=== PATIENT | female | born 1990 | race Two or more races ===

== ENCOUNTER → 2021-03-20 12:55 | Outpatient (BNVA) | payer OTHER, SELFPAY | PROVIDERS: PCP Internal Medicine; Visit Provider Physician Assistant | DX: E66.9 Obesity, unspecified (principal); Z68.36 Body mass index [BMI] 36.0-36.9, adult | CPT/HCPCS: 99202 ==

== ENCOUNTER → 2021-04-16 13:44 | Outpatient (BNVA) | payer OTHER, SELFPAY | PROVIDERS: PCP Internal Medicine; Visit Provider Physician Assistant | DX: E66.01 Morbid (severe) obesity due to excess calories (principal); Z68.41 Body mass index [BMI] 40.0-44.9, adult | CPT/HCPCS: 99212 ==

== ENCOUNTER 2021-04-19 10:12 | Outpatient (REF) | payer OTHER, SELFPAY ==
--- NOTE | ~2021-04-19 | XR_ITS ---
EXAMINATION: XR CHEST CLINICAL INFORMATION: Obesity. COMPARISON: None TECHNIQUE: 2 views of the chest were obtained. FINDINGS: The lungs are clear. The cardiomediastinal silhouette is normal in size. There is no pleural effusion or pneumothorax. No acute osseous abnormality. XR/XR chest 2V IMPRESSION: No acute cardiopulmonary findings.
--- NOTE | 2021-04-19 10:43 | ECG_ITS ---
Test Reason : MORBID OBESITY Blood Pressure : / mmHG Vent. Rate : 074 BPM Atrial Rate : 074 BPM P-R Int : 136 ms QRS Dur : 070 ms QT Int : 372 ms P-R-T Axes : 042 069 044 degrees QTc Int : 412 ms Normal sinus rhythm Normal ECG No previous ECGs available Referred By: Jenae Sun Electronically Signed By:NIRMALA BROWN MD
[2021-04-19 11:44] LABS: Basophils Percent Auto 0.3 % (0-2); Eosinophils Absolute Auto 0.3 X10*3/uL (0.0-0.4); Eosinophils Percent Auto 3.8 % (0-4); Hematocrit 41.4 % (37-47); Hemoglobin 13.9 g/dl (12.0-16.0); Imm Gran Abs Auto 0.02 X10*3/uL (0.00-0.03); Imm Gran Pct Auto 0.2 % (0.0-0.4); Lymphocytes Absolute Auto 2.2 X10*3/uL (1.2-4.9); Lymphocytes Percent Auto 24.4 % (20-40); MANUAL DIFF FLAG SCAN; Mean Corpuscular HGB Conc 33.6 g/dl (31.0-35.0); Mean Corpuscular Hemoglobin 28.1 pg (27.0-33.0); Mean Corpuscular Volume 83.6 fL (80-98); Mean Platelet Volume 9.9 fL (9.4-12.3); Monocytes Absolute Auto 0.4 X10*3/uL (0.1-1.2); Monocytes Percent Auto 4.9 % (2-11); Neutrophils Percent Auto 66.4 % (45-73); PLT CLUMP 1; Red Blood Count 4.95 X10*6/uL (4.20-5.50); Red Cell Distribution Width 14.6 % (11.0-16.0); SCAN SMEAR FLAG 1
[2021-04-19 12:01] LABS: Estimated Average Glucose 128 mg/dL; Hemoglobin A1c % 6.1 %
[2021-04-19 12:06] LABS: Alanine Aminotransferase 25 U/L (0-31); Albumin Level 4.3 g/dL (3.5-5.0); Alkaline Phosphatase 78 U/L (39-117); Anion Gap 12 (12-20); Aspartate Amino Transferase 18 U/L (5-31); Bilirubin Total 0.4 mg/dL (0.0-1.0); Blood Urea Nitrogen 10 mg/dL (9-16); C Reactive Protein 2.37 mg/dL (< or = 0.50); Calcium 9.6 mg/dL (8.4-10.2); Carbon Dioxide 26 mmol/L (22-29); Chloride 105 mmol/L (96-108); Cholesterol 181 mg/dL; Estimated Glomerular Filt Rate > 60; Glucose Fasting 94 mg/dL (60-99); HDL Cholesterol 49 mg/dL; Iron 41 mcg/dL (30-160); LDL Cholesterol Calculated 118 mg/dl; Percent Iron Saturation 11 % (15-50); Potassium 4.5 mmol/L (3.3-5.1); Sodium 138 mmol/L (135-145); Total Iron Binding Capacity 374 mcg/dL (228-428); Total Protein 7.5 g/dL (6.5-8.0); Triglycerides 74 mg/dL; Unsaturated Iron Binding 333 ug/dL
[2021-04-19 12:41] LABS: Ferritin 74 ng/mL (10-122); TSH reflex Free T4 0.83 uIU/mL (0.32-4.0); Vitamin D 25-OH Total 20.1 ng/mL (>30)
[2021-04-19 12:47] LABS: Folate 15.4 ng/mL (> or = 4.0); Vitamin B12 502 pg/mL (200-900)
[2021-04-19 12:52] LABS: Platelet Count 350 X10*3/uL (160-400); SLIDE REVIEW VERIFIED
[2021-04-20 15:26] LABS: Insulin Level Total 32.7 uIU/mL
[2021-04-21 09:36] LABS: Calcium (PTHI) 9.1 mg/dL (8.6-10.2); PTHI 44 pg/mL (14-64)
[2021-04-22 23:56] LABS: Zinc 86 mcg/dL (60-130)
[2021-04-23 11:06] LABS: Vitamin B1 12 nmol/L (8-30)
[2021-04-25 13:56] LABS: Vitamin A 55 mcg/dL (38-98)
== END 2021-04-19 10:13 | disposition home or self-care (01) ==
LOC: HO.XRAY 10:12
PROVIDERS: PCP Internal Medicine; Visit Provider Physician Assistant
DX: E66.9 Obesity, unspecified (principal); Z68.38 Body mass index [BMI] 38.0-38.9, adult; R06.02 Shortness of breath
CPT/HCPCS: 36415; 71046; 80053; 80061; 82306; 82607; 82728; 82746; 83036; 83525; 83540; 83970; 84425; 84443; 84590; 84630; 85025; 86140; 93005; 99212

== ENCOUNTER 2021-05-01 | Outpatient (REF) | payer OTHER, SELFPAY | END 2021-05-01 00:01 | disposition home or self-care (01) | LOC: HO.LAB | PROVIDERS: Visit Provider Physician Assistant | DX: Z11.1 Encounter for screening for respiratory tuberculosis (principal) | CPT/HCPCS: 83013 ==

== ENCOUNTER 2021-05-01 10:02 | Outpatient (REF) | payer OTHER, SELFPAY | END 2021-05-01 10:03 | disposition home or self-care (01) | LOC: CF 10:02 | PROVIDERS: Visit Provider Physician Assistant | DX: Z11.1 Encounter for screening for respiratory tuberculosis (principal) | CPT/HCPCS: 99211 ==

== ENCOUNTER 2021-05-08 09:12 | Outpatient (REF) | payer OTHER, SELFPAY ==
--- NOTE | ~2021-05-08 | US_ITS ---
EXAMINATION: US COMPLETE ABDOMEN WITH LIVER ELASTOGRAPHY CLINICAL INFORMATION: Obesity. COMPARISON: None TECHNIQUE: Real-time imaging of the abdominal viscera. Noninvasive ultrasound liver fibrosis assessment is performed using Shivani ElastPQ point quantification shear wave elastography (pSWE) with a C5-2 MHz transducer. Multiple elastography samples are obtained. FINDINGS: PANCREAS: The body of the pancreas is normal appearing. The head and tail are not well visualized due to bowel gas. ABDOMINAL AORTA: The proximal, middle, and distal aortic segments are normal in caliber. INFERIOR VENA CAVA: Visualized portions are normal. LIVER: Liver echotexture is increased. The liver is normal in size and contour. There is a hypoechoic area adjacent to the gallbladder, characteristic location of focal fatty sparing. No other focal lesion or intrahepatic biliary duct dilatation. The right lobe measures 16 cm in length. The left lobe measures 13 cm in length. Portal flow is normal. Hepatopedal. Shear wave liver elastography median stiffness is 1.7 m/s (reference: normal median stiffness is 1.3 m/s or less). IQR/median stiffness to assess sampling precision is 0.12 (reference: good quality data set is IQR/median stiffness of 0.15 or less). GALLBLADDER: Normal. The gallbladder is physiologically distended without evidence of stones, sludge, polyps, wall thickening or pericholecystic fluid. COMMON BILE DUCT: Normal in caliber measuring 0.3 cm in diameter. RIGHT KIDNEY: Normal. No hydronephrosis. No renal calculi or focal parenchymal lesions. The kidney measures 12.8 cm in maximum dimension. LEFT KIDNEY: Normal. No hydronephrosis. No renal calculi or focal parenchymal lesions. The kidney measures 11 cm in maximum dimension. SPLEEN: Normal. The spleen measures 9.8 cm in maximum dimension. FREE FLUID: None. US/US abdomen comp w elastography IMPRESSION: 1. Echogenic liver probably representing fatty infiltration. Limited visualization of the pancreas. 2. Liver Elastography: Adequate sampling. In the absence of other known clinical signs, rules out compensated advanced chronic liver disease. REFERENCE: Society of Radiologists in Ultrasound Liver Stiffness Thresholds (2020): LIVER STIFFNESS THRESHOLDS: *Liver Stiffness equal or less than 1.3 m/s: High probability of being normal. *Liver Stiffness less than 1.7 m/s: In the absence of other known clinical signs, rules out compensated advanced chronic liver disease. *Liver Stiffness 1.7-2.1 m/s: Suggestive of compensated advanced chronic liver disease but need further test for confirmation. *Liver Stiffness over 2.1 m/s: Rules in compensated advanced chronic liver disease. *Liver Stiffness over 2.4 m/s: Suggestive of clinically significant portal hypertension. QUALITY OF DATA SET: *IQR/Median value equal or less than 0.15 implies a quality data set. *IQR/Median value over 0.15 implies a poor quality data set. SIGNIFICANT CHANGE FROM PRIOR EXAM: Significant change if liver stiffness measurement is 10% or greater from prior exam. OTHER CONSIDERATIONS: The stage of liver fibrosis may be overestimated in the setting of acute hepatitis, liver inflammation, elevated liver function tests, hepatic vascular congestion, obstructive cholestasis, non-fasting state, and infiltrative diseases such as amyloidosis and lymphoma. In some patients with NAFLD, the liver stiffness thresholds for compensated advanced chronic liver disease may be lower. In causes other than viral hepatitis and NAFLD, liver stiffness thresholds are not well established.
--- NOTE | ~2021-05-08 | FL_ITS ---
EXAMINATION: XR GI SERIES CLINICAL INFORMATION: Obesity COMPARISON: None TECHNIQUE: Upper GI was performed using thin and thick barium and effervescent granules. FINDINGS: Esophageal motility is normal. No esophageal hernia or reflux is seen. The stomach and duodenum are normal-appearing. No fold thickening, mass, ulcer or stricture is seen. FLUOROSCOPY TIME: 1.5 minutes DOSE AREA PRODUCT: 18 del rio per centimeter squared. Total dose 73 mgy. 28 saved fluoroscopic images. FL/FL upper GI series IMPRESSION: Unremarkable examination.
== END 2021-05-08 09:13 | disposition home or self-care (01) ==
LOC: HO.US 09:12
PROVIDERS: Visit Provider Surgery
DX: Z01.818 Encounter for other preprocedural examination (principal); E66.01 Morbid (severe) obesity due to excess calories; Z68.41 Body mass index [BMI] 40.0-44.9, adult; R06.02 Shortness of breath; K21.9 Gastro-esophageal reflux disease without esophagitis
CPT/HCPCS: 74240; 76705; 76981; 97802

== ENCOUNTER → 2021-05-22 09:01 | Outpatient (BNVA) | payer OTHER, SELFPAY | PROVIDERS: PCP Internal Medicine; Visit Provider Surgery | DX: E66.9 Obesity, unspecified (principal); I49.9 Cardiac arrhythmia, unspecified; Z68.36 Body mass index [BMI] 36.0-36.9, adult | CPT/HCPCS: 99212 ==

== ENCOUNTER → 2021-05-29 08:16 | Outpatient (BNVA) | payer OTHER, SELFPAY | PROVIDERS: PCP Internal Medicine; Visit Provider Dietitian, Registered | DX: E66.9 Obesity, unspecified (principal); Z68.35 Body mass index [BMI] 35.0-35.9, adult | CPT/HCPCS: 97803 ==

== ENCOUNTER → 2021-06-19 11:28 | Outpatient (BNVA) | payer OTHER, SELFPAY | PROVIDERS: PCP Internal Medicine; Visit Provider Surgery | DX: E66.01 Morbid (severe) obesity due to excess calories (principal); K58.9 Irritable bowel syndrome, unspecified; E66.9 Obesity, unspecified; E55.9 Vitamin D deficiency, unspecified; Z68.36 Body mass index [BMI] 36.0-36.9, adult; Z91.030 Bee allergy status; Z79.899 Other long term (current) drug therapy | CPT/HCPCS: 99212 ==

== ENCOUNTER 2021-07-03 09:00 | Outpatient (REF) | payer OTHER, SELFPAY ==
[2021-07-04 13:15] LABS: H Pylori Breath Test DETECTED (NOT DETECTED)
== END 2021-07-03 09:01 | disposition home or self-care (01) ==
LOC: HO.LNP 09:00
PROVIDERS: Surgery; PCP Internal Medicine; Visit Provider Physician Assistant
DX: Z01.818 Encounter for other preprocedural examination (principal); A04.8 Other specified bacterial intestinal infections
CPT/HCPCS: 83013; 99211

== ENCOUNTER → 2021-07-04 14:30 | Outpatient (BNVA) | payer OTHER, SELFPAY | PROVIDERS: PCP Internal Medicine; Visit Provider Internal Medicine Cardiovascular Disease | DX: R00.2 Palpitations (principal) | CPT/HCPCS: 99202 ==

== ENCOUNTER → 2021-07-26 11:06 | Outpatient (REF) | payer OTHER, SELFPAY ==
--- NOTE | 2021-07-26 11:09 | HM_ITS ---
Baseline rhythm is normal sinus rhythm with average heart rate in 90s. No significant pauses or bradycardia noted. AV conduction is satisfactory. Total burden of PVC for 6 days at 4194 PVCs, mostly isolated with 2 different morphology. No significant ventricular tachyarrhythmia noted. Total burden of PVCs in the occasional range. Patient reported 6 events, 1 of the events of chest pain correlated with ventricular bigeminy. Other 5 events correlated with sinus rhythm. MTDD
== END ==
LOC: HO.CARD 11:06
PROVIDERS: PCP Internal Medicine; Visit Provider Internal Medicine
DX: R00.2 Palpitations (principal)
CPT/HCPCS: 93242

== ENCOUNTER → 2021-08-17 13:03 | Outpatient (REF) | payer OTHER, SELFPAY ==
--- NOTE | 2021-08-17 13:06 | CA_ITS ---
Transthoracic Echocardiogram Patient (Last, First, Middle): Virginia Christopher M Gender: Female Date of : 1990 Age: 30 Procedure Date: 08/17/2021 Procedure Type: Transthoracic Echocardiogram Location: OP Height: 162.56 cm Weight: 97.52 kg BSA: 2.02 m2 Heart Rate: bpm BP: 110 / 60 mmHg Supervisor Intelligence Analyst: YR/CP Referring MD: Alfred Fernandez MD Symptoms: I42.9 - Cardiomyopathy, unspecified Study Quality: Fair Conclusions: - Normal left ventricular size, thickness, systolic function, and wall motion. - Diastolic function is normal for age. - Normal right ventricular cavity size and systolic function. - No significant valvular or pericardial pathology. Findings Left Ventricle Normal left ventricular size, thickness, systolic function, and wall motion. The visually estimated ejection fraction is between 55-60%. Diastolic function is normal for age. Right Ventricle Normal right ventricular cavity size and systolic function. Atria Both atria are normal in size. Aortic Valve Normal aortic valve structure and function. There is no aortic valve stenosis. There is no aortic valve regurgitation. Mitral Valve Normal mitral valve structure and function. There is no mitral valve regurgitation. There is no mitral valve stenosis. Pulmonic Valve Normal pulmonic valve structure and function. There is no pulmonic valve regurgitation. Tricuspid Valve Normal tricuspid valve structure and function. There is trace tricuspid valve regurgitation. Tricuspid regurgitation envelope is inadequate for calculation of right ventricular systolic pressure. Normal right atrial pressure. Great Vessels All visible segments of the aorta are normal in size. The visualized portions of the pulmonary artery and branches are normal. Venous The inferior vena cava is normal in size and collapses greater than 50% with inspiration. Pericardium/Pleural Normal pericardial structure. There is no evidence of pericardial effusion. Prior Study Comparison No prior study available for comparison. Measurements 2D Linear Measurements IVSd: 0.90 0.6-0.9/0.6-1.0 cm LVIDd: 4.77 3.9-5.3/4.2-5.9 cm LVIDd Index: 2.36 2.4-3.2/2.2-3.1 cm/m2 LVIDs: 3.26 2.0-3.6 cm LVPWd: 0.67 0.7-1.1 cm Ao Root: 3.20 2.1-3.5 cm LA Diam: 3.40 2.7-3.8/3.0-4.0 cm LAIDs Index: 1.68 1.5-2.3 cm/m2 LV Mass: 151.41 67-162/88-224 g LV Mass Index: 74.96 43-95/49-115 g/m2 LVOT Diam: 2.00 3.0+(-)1.3 cm 2D Systolic Function EF 4C: 57.00 >55% EF 2C: 64.90 >55% EF BiP: 61.40 >55% Mitral Valve MV Pk E: 0.88 MV PK A: 0.51 MV Decel Time: 212.00 E/A: 1.70 E'Lateral: 13.10 E'Medial: 10.00 E/E' Med: 8.80 E/E' Lat: 6.70 PHT: 62.00 MVA PHT: 3.55 Decel Roberts: 4.14 Aortic Valve AoV Pk Dwayne: 1.09 AoV Mn Dwayne: 0.82 AoV VTI: 0.25 AoV Pk Grad: 5.00 Aov Mn Grad: 3.00 EVITA Cont.VTI: 2.33 LVOT LVOT Pk Dwayne: 1.00 LVOT Mn Dwayne: 0.65 LVOT VTI: 0.19 LVOT Pk Grad: 4.00 LVOT Mn Grad: 2.00 LVOT Diam: 2.00 LVOT Area: 3.14 Diastolic Function MV Pk E: 0.88 MV Pk A: 0.51 E/A: 1.70 E'Medial: 10.00 E/E' Med: 8.80 E' Laterial: 13.10 E/E' Lat: 6.70 Right Ventricle TAPSE (mm): 2.20 TVS' Dwayne: 10.30 Tricuspid Valve RA Press: 3.00 Great Vessels Aorta Ao Root-2D: 3.20 2.0-3.7 cm Ao Asc: 3.00 2.1-3.4 cm Ao Arch: 2.70 Updated in Other Vendor System with Status of Final Alfred Fernandez MD electronically signed on 08/19/2021 1:58:01 PM with status of Final
== END ==
LOC: HO.CARD 13:03
PROVIDERS: PCP Internal Medicine; Visit Provider Internal Medicine Cardiovascular Disease
DX: R00.2 Palpitations (principal); I42.9 Cardiomyopathy, unspecified
CPT/HCPCS: 93306

== ENCOUNTER 2021-10-12 | Outpatient (REF) | payer OTHER, SELFPAY ==
[2021-10-16 12:12] LABS: H Pylori Breath Test Positive (Negative)
== END 2021-10-12 00:01 | disposition home or self-care (01) ==
LOC: HO.LNP
PROVIDERS: Visit Provider Physician Assistant
DX: E66.01 Morbid (severe) obesity due to excess calories (principal); Z68.41 Body mass index [BMI] 40.0-44.9, adult; R06.02 Shortness of breath
CPT/HCPCS: 83013

== ENCOUNTER → 2021-10-12 09:06 | Outpatient (BNVA) | payer OTHER, SELFPAY | PROVIDERS: PCP Internal Medicine; Visit Provider Surgery | DX: E66.9 Obesity, unspecified (principal); E11.9 Type 2 diabetes mellitus without complications; E16.1 Other hypoglycemia; E28.2 Polycystic ovarian syndrome; J45.909 Unspecified asthma, uncomplicated; G47.30 Sleep apnea, unspecified; Z68.38 Body mass index [BMI] 38.0-38.9, adult | CPT/HCPCS: 99211; 99212 ==

== ENCOUNTER → 2021-10-16 08:05 | Outpatient (BNVA) | payer OTHER, SELFPAY | PROVIDERS: PCP Internal Medicine; Visit Provider Dietitian, Registered | DX: E66.01 Morbid (severe) obesity due to excess calories (principal); E55.9 Vitamin D deficiency, unspecified; Z68.38 Body mass index [BMI] 38.0-38.9, adult; J30.2 Other seasonal allergic rhinitis; Z91.030 Bee allergy status | CPT/HCPCS: 97803 ==

== ENCOUNTER → 2021-11-09 08:00 | Outpatient (BNVA) | payer OTHER, SELFPAY | PROVIDERS: PCP Internal Medicine; Visit Provider Surgery ==

== ENCOUNTER → 2021-12-10 07:26 | Outpatient (BNVA) | payer OTHER, SELFPAY | PROVIDERS: PCP Internal Medicine; Visit Provider Surgery ==

== ENCOUNTER → 2022-01-07 08:11 | Outpatient (BNVA) | payer OTHER, SELFPAY | PROVIDERS: PCP Internal Medicine; Visit Provider Surgery ==